=== PATIENT | male | born 1965 | race African-American/Black ===

== ENCOUNTER 2017-05-15 16:38 | Inpatient (IN) | payer OTHER ==
[~2017-05-15] VITALS: Ht 172.7 cm; Wt 78.0 kg
--- NOTE | ~2017-05-15 | CO ---
Unit #: [id number] #: [id number] Patient: GENEVA ROBLES [id number] [facility] [address] [place] [address] [id number] I MR#: [id number] NAME: GENEVA ROBLES. ROOM: P203 Age: 51 Sex: M Admission Date: 05/15/2017 : 1965 Attending Physician: Crescencio Hyde M.D. Primary Care Physician: Calli Doctor Not In System Consultation Date: 05/16/2017 CONSULTATION REPORT This is a followup to an initial consultation. HISTORY OF PRESENT ILLNESS Geneva was seen yesterday for an open wound on his right ankle. There is a concern that it was infected. He was unable to ambulate due to the pain in this ankle and also is having body aches and chills today. He was sent to the ER at [facility] where he was given Bactroban. Today, he does complain of continued pain with ambulation and is using a wheelchair. He also does have body aches and chills, however, he is currently detoxing. He has no other complaints. PHYSICAL EXAMINATION CARDIAC: Regular rate and rhythm. No murmurs, gallops, or rubs. RESPIRATORY: Clear to auscultation bilaterally. SKIN: 3 cm round open wound on the right medial malleolus with another lesion about 1.5 cm round, tenderness with palpation and mild edema. Please see photo in chart. ASSESSMENT AND PLAN Right ankle open wound. We have obtained an x-ray of the right ankle that is pending. CBC results have not been obtained. We will re-attempt to obtain these. Dictated by... Ilya Wolfe/randee TD: 05/16/2017 23:53 JOB #: [id number] CONSULTATION REPORT Page 1 of 1 X MARQUIS MARCUS APRN CONSULTATION REPORT
--- NOTE | ~2017-05-15 | HP ---
Unit #: [id number] #: [id number] Patient: GENEVA GONSALES [id number] [facility] [address] [place] [address] [id number] I MR#: [id number] NAME: GENEVA GONSALES ROOM: P208 Age: 51 Sex: M Admission Date: 05/15/2017 : 1965 Attending Physician: Crescencio Hyde M.D. Admitting Physician: Crescencio Hyde M.D. Primary Care Physician: Generic Doctor Not In System HISTORY AND PHYSICAL This is Shaye Conroy, nurse practitioner dictating an amendment to an H & P on Geneva Gonsales that was completed on 05/15/2017. His medical record [id number], his date of is [birth year]. PAST MEDICAL HISTORY Yesterday Geneva reported that he has no past medical history, today he is reporting a history of hepatitis C and hypertension. Dictated by... Ilya Wolfe TD: 05/17/2017 00:42 JOB #: [id number] HISTORY AND PHYSICAL Page 1 of 1 X SHAYE CONROY APRN X HISTORY AND PHYSICAL
--- NOTE | ~2017-05-15 | CO ---
Unit #: [id number] #: [id number] Patient: GENEVA ROBLES [id number] [facility] [address] [place] [address] [id number] I MR#: [id number] NAME: GENEVA ROBLES. ROOM: P203 Age: 51 Sex: M Admission Date: 05/15/2017 : 1965 Attending Physician: Crescencio Hyde M.D. Primary Care Physician: Calli Doctor Not In System Consultation Date: 05/16/2017 CONSULTATION REPORT ADDENDUM Records have been received from [facility] where Geneva was admitted for cellulitis and treated nonsurgically for abscess on his right ankle. He had a CT scan that was negative for osteomyelitis or any drainable abscesses. He was treated with one time dose of Dalvance and not prescribed any further medications for this reason. He was prescribed followup wound care; however, he has been noncompliant with that and he was discharged from there on 05/12/2017. Dictated by... Ilya Wolfe/randee TD: 05/16/2017 23:34 JOB #: [id number] CONSULTATION REPORT Page 1 of 1 X MARQUIS MARCUS APRN CONSULTATION REPORT
--- NOTE | ~2017-05-15 | CO ---
Unit #: [id number] #: [id number] Patient: GENEVA ROBLES [id number] [facility] [address] [place] [address] [id number] I MR#: [id number] NAME: GENEVA ROBLES. ROOM: [facility] Age: 51 Sex: M Admission Date: 05/15/2017 : 1965 Attending Physician: Crescencio Hyde M.D. CONSULTATION REPORT REVISED REPORT ORDERING PROVIDER Dr. Hyde. REASON FOR CONSULT To follow up on right ankle wound. HISTORY OF PRESENT ILLNESS The patient was seen yesterday by Shaye Conroy, nurse practitioner. He was sent to [facility] for evaluation of his right leg wound. He returned on Bactroban and Keflex. He had previous admissions to a hospital in [place] for the same, in which he was given IV antibiotics and surgical consult was done, which revealed that he did not need any type of surgical intervention. CT in [place] was negative, and x-ray that was yesterday showed no signs of osteomyelitis. Dr. Nino was consulted about the wound because it did not appear to be getting better from previous days. He recommended discontinuing the Bactroban, and continuing the Keflex for three days and starting... Dr. Johnson recommends Santyl dressing changes once daily and he will come and look at the wound on Sunday when he was rounding. EF/modl TD: 05/18/2017 09:27 JOB #: [id number] Dictated by... Giselle Escoto A.P.R.N. for Karla Johnson M.D. EF/modl TD: 05/18/2017 09:19 JOB #: [id number] Unit #: [id number] #: [id number] Patient: GENEVA ROBLES CONSULTATION REPORT Page 1 of 1 X GISELLE ESCOTO APRN CONSULTATION REPORT
--- NOTE | ~2017-05-15 | CR21 ---
[facility] A Service of [facility] RADIOLOGY TEXT RESULTS PATIENT: GENEVA ROBLES LOCATION: P2S : 63 UNIT #: [id number] AGE: [address]: Crescencio Hyde MD SEX: M ORDER DR: [id number] [facility] [address] [facility]. [place], [place] [address] [id number] I MR#: [id number] Acc #: [id number] NAME: GENEVA ROBLES : 1965 SEX: M STUDY DATE/TIME: 05/16/2017 17:37 UNIT: [facility] ROOM: [place] STUDY DESCRIPTION: CR Ankle Min 3 Views Rt Attending Physician: Crescencio Hyde M.D. Ordering Physician: Crescencio Hyde M.D. MEDICAL IMAGING REPORT This report is preliminary unless electronic signature is present EXAM Right ankle HISTORY Ulcer on medial ankle. Patient is a poor historian and has no idea how long it has been there. Patient is unable to bear weight on right ankle. Open wound. Patient has been shooting up heroin and is suicidal. TECHNIQUE Three views of the right ankle are reviewed. FINDINGS There is soft tissue swelling medially with area of defect, which would be consistent with the wound described in the history. There is no associated radiopaque foreign body. There is no plain film radiographic evidence for osteomyelitis. There is no acute fracture or dislocation. IMPRESSION 1. Findings are consistent with soft tissue ulcer medially, overlying the medial malleolus. There is no foreign body appreciated on x-ray and there is no evidence for osteomyelitis on plain film. Please correlate for clinical evidence of cellulitis. Dictated by... Mickie Carlton M.D. THIS IS AN ELECTRONICALLY VERIFIED REPORT Mickie Carlton M.D. at 05/17/2017 10:45 AM SAC/pcl TD: 05/16/2017 21:57 [facility] A Service [facility] RADIOLOGY TEXT RESULTS PATIENT: GENEVA ROBLES LOCATION: P2S : [birth year] UNIT #: [id number] AGE: [address]: Crescencio Hyde MD SEX: M ORDER DR: JOB #: [id number] MEDICAL IMAGING REPORT Page 1 of 1 COPY
--- NOTE | ~2017-05-15 | HP ---
Unit #: [id number] #: [id number] Patient: GENEVA ROBLES [id number] [facility] [address] [place] [address] [id number] I MR#: [id number] NAME: GENEVA ROBLES. ROOM: P208 Age: 51 Sex: M Admission Date: 05/15/2017 : 1965 Attending Physician: Crescencio Hyde M.D. Admitting Physician: Crescencio Hyde M.D. Primary Care Physician: Generic Doctor Not In System HISTORY AND PHYSICAL HISTORY OF PRESENT ILLNESS Geneva is a 51-year-old male admitted on 05/15/2017 to [facility] for detox from heroin. PAST MEDICAL HISTORY None. PAST SURGICAL HISTORY None. ALLERGIES None. SOCIAL HISTORY Smokes 1/2 pack of cigarettes daily. Denies alcohol use. Does report daily use of heroin. He is currently single and living at [facility]. FAMILY HISTORY Noncontributory. REVIEW OF SYSTEMS CONSTITUTIONAL: No fever or chills. HEENT: Denies any sore throat, ear pain or runny nose. CARDIOVASCULAR: Denies chest pain, irregular heart rhythm or palpitations. CHEST: Denies shortness of breath or cough. No hemoptysis. GASTROINTESTINAL: Denies nausea, vomiting, diarrhea or chronic constipation. ENDOCRINE: Denies history of increased thirst or urination. No recent significant weight loss or gain. GENITOURINARY: Denies dysuria, frequency, or hematuria. SKIN: Wound on right ankle. HEMATOLOGIC: Denies history of increased bleeding or bruising. MUSCULOSKELETAL: Patient reports severe pain in his right ankle and he is unable to ambulate. NEUROLOGIC: Denies problems with vision or speech. No frequent, severe headaches. No numbness, tingling or weakness in any extremities. Denies loss of bladder or bowel control. CURRENT MEDICATIONS None. PHYSICAL EXAMINATION Unit #: [id number] #: [id number] Patient: GENEVA ROBLES GENERAL: Alert, oriented, in no acute distress. VITAL SIGNS: Blood pressure 150/93, heart rate 92, respirations 20, temperature 97.9. HEIGHT: 5 feet 8. WEIGHT: 172 pounds. SKIN: Open wound to right ankle. Please see medical consult. HEENT: Normocephalic. TMs not viewed. Oral and nasal passages clear. Conjunctivae clear. PERRLA. EOMs intact. NECK: Supple without lymphadenopathy or thyromegaly. HEART: Regular rate and rhythm without murmur. LUNGS: Clear. ABDOMEN: Soft, nontender, without masses or hepatosplenomegaly. : Not done. EXTREMITIES: No evidence of cyanosis, clubbing or edema. Moves all without focal deficit. NEUROLOGICAL: Grossly within normal limits. Cranial Nerves: II: Visual medina are intact. III, IV AND : Extraocular movements are intact. Pupils are equal, round and reactive to light. V: Facial sensation is grossly normal. VII: Facial movements and expression are normal. VIII: Auditory acuity grossly intact. IX, X: Uvula is midline. Phonation is normal. XI: Patient shrugs shoulders and turns head normally. XII: Tongue protrudes in the midline. Sensory and Motor Function: Sensory and motor sensation is grossly normal. Motor: moves all extremities well. Coordination: Gait is normal. Deep Tendon Reflexes: Intact. IMPRESSION Psychiatric admission. RECOMMENDATIONS PSYCHIATRIC: Per psychiatrist. MEDICAL: No contraindication to participate in facility's activities. MEDICAL PROGNOSIS Good. MEDICAL CONDITION Stable. Dictated by... Ilya Wolfe/[place] TD: 05/15/2017 21:25 JOB #: [id number] Unit #: [id number] #: [id number] Patient: GENEVA ROBLES HISTORY AND PHYSICAL Page 1 of 1 X MARQUIS MARCUS APRN X HISTORY AND PHYSICAL
--- NOTE | ~2017-05-15 | PN ---
Unit #: [id number] #: [id number] Patient: GENEVA ROBLES [id number] [facility] [address] [place] [address] [id number] I MR#: [id number] NAME: GENEVA ROBLES. ROOM: P203 Age: 51 Sex: M Admission Date: 05/15/2017 : 1965 Attending Physician: Crescencio Hyde M.D. Admitting Physician: Crescencio Hyde M.D. Primary Care Physician: Generic Doctor Not In System [facility] PROGRESS NOTES DATE 05/17/2017 DISCUSSION The patient is abed today continuing to complain of frequent physical discomfort related to opioid withdrawal. He states that he plans to return to the [facility] upon completion of detox. Dictated by... Crescencio Hyde M.D. CB/bzg TD: 05/17/2017 14:30 JOB #: [id number] [facility] PROGRESS NOTES Page 1 of 1 X Crescencio Hyde MD X PROGRESS NOTE
--- NOTE | ~2017-05-15 | PA ---
Unit #: [id number] #: [id number] Patient: GENEVA ROBLES [id number] [facility] [address] [place] [address] [id number] I MR#: [id number] NAME: GENEVA ROBLES. ROOM: P208 Age: 51 Sex: M Admission Date: 05/15/2017 : 1965 Date of Assessment: 05/16/2017 Attending Physician: Crescencio Hyde M.D. Admitting Physician: Crescencio Hyde M.D. Primary Care Physician: Generic Doctor Not In System PSYCHIATRIC ASSESSMENT IDENTIFYING INFORMATION The patient is a 51-year-old male admitted to the [address] [place] [address] Unit with recurrent abuse of heroin. CHIEF COMPLAINT None given. INFORMANT Patient and chart, reliability good. HISTORY OF PRESENT ILLNESS The patient is a 51-year-old male admitted with recurrence abuse of heroin. The patient abused on the morning of admission. He was reporting positive suicidal ideation at the time of admission and was brought to this facility from the [facility] "to detox." The patient has had come here approximately 1 year ago from [place], [place], to seek treatment for his opioid dependence and was admitted under similar circumstances at that time. When seen today, the patient is abed, resting comfortably. He cannot be aroused for interview. For more complete history of present illness, please refer to previously dictated notes. PAST PSYCHIATRIC HISTORY Reviewed, no changes. PAST MEDICAL HISTORY Reviewed, no changes. MEDICATIONS At the time of admission, the patient is on no prescribed medications. ALLERGIES None. FAMILY HISTORY Noncontributory. SOCIAL HISTORY Reviewed, no changes. MENTAL STATUS EXAM Examination at this time reveals the patient to be a soundly sleeping male. He is abed in no apparent physical distress. Unit #: [id number] #: [id number] Patient: GENEVA ROBLES ASSETS AND LIABILITIES The patient's assets are to be assessed. Liabilities: Lack of resources. Ongoing substance use. DIAGNOSTIC IMPRESSION 1. Opioid use disorder. 2. Mood disorder. 3. Dysthymic disorder. 4. Hepatitis C. 5. Hypertension. TREATMENT PLAN The patient remains hospitalized for safety and stabilization. We will seek a med consult related to some areas of excoriation on the patient's right leg and for his blood pressure. ESTIMATED LENGTH OF STAY 5 to 7 days. The followup will take place through the auspices of community mental health resources. Dictated by... Stephen Jolley TD: 05/16/2017 14:01 JOB #: [id number] PSYCHIATRIC ASSESSMENT Page 1 of 1 X Crescencio Hyde MD X PSYCHIATRIC ASSESSMENT
--- NOTE | ~2017-05-15 | DS ---
Unit #: [id number] #: [id number] Patient: GENEVA ROBLES [id number] [facility] [address] [place] [address] [id number] I MR#: [id number] NAME: GENEVA ROBLES. ROOM: P203 Age: 51 Sex: M Admission Date: 05/15/2017 : 1965 Discharge Date: 05/18/2017 Attending Physician: Crescencio Hyde M.D. Primary Care Physician: Generic Doctor Not In System DISCHARGE SUMMARY REASON FOR ADMISSION The patient is a 51-year-old, -[place] male admitted to the [address] [place] [address] for opioid detox. HOSPITAL COURSE Patient was admitted to the [address] [place] [address] and placed on routine detoxification protocol for opioids. He was seen related to an ankle ulcer and begun on Keflex and collagenase cream. The patient's stay in the hospital was otherwise uneventful. By 05/18, he exhibited no signs or symptoms of withdrawal and requested discharge. He stated that he was planning to return to the [facility]. Discharge was ordered. FINAL DIAGNOSES 1. Opioid used disorder. 2. Ankle ulcer. DISPOSITION (1) . DISCHARGE MEDICATIONS On discharge, patient is discharged on the following medications: 1. Santyl apply once daily to affected area. 2. Keflex 500 mg every 8 hours for wound infection. DIET AND ACTIVITY No dietary or physical restrictions were placed on the patient at the time of discharge. FOLLOWUP Will take place through the auspices of community mental health resources in the [facility]. PROGNOSIS The patient's prognosis is considered fair. Dictated by... Crescencio Hyde M.D. CB/kevin Unit #: [id number] #: [id number] Patient: GENEVA ROBLES TD: 05/19/2017 12:28 JOB #: [id number] DISCHARGE SUMMARY Page 1 of 1 X Crescencio Hyde MD X DISCHARGE SUMMARY
--- NOTE | ~2017-05-15 | CO ---
Unit #: [id number] #: [id number] Patient: GENEVA ROBLES [id number] [place] [address] [id number] MR#: [id number] NAME: GENEVA ROBLES. ROOM: P208 Age: 51 Sex: M Admission Date: 05/15/2017 : 1965 Attending Physician: Crescencio Hyde M.D. Primary Care Physician: Generic Doctor Not In System Consultation Date: 05/15/2017 CONSULTATION REPORT HISTORY OF PRESENT ILLNESS Geneva reports right ankle wound that he first noticed 2 days ago. However, he is a very poor historian and is not really answering questions appropriately. Staff reports that they noticed on admission, he was unable to ambulate due to pain in his right ankle. He also has had severe body chills and aches, but has not had any fevers. He reports severe pain with any kind of movement of his right ankle and has no other complaints. PHYSICAL EXAMINATION CARDIAC: Regular rate and rhythm. No murmurs, gallops, or rubs. RESPIRATORY: Clear to auscultation bilaterally. SKIN: 2 cm, round, open wound on right medial malleolus with adjacent 1.5 cm closed wound, extremely tender to touch. MUSCULOSKELETAL: Very limited range of motion in right ankle due to pain, heat and swelling. ASSESSMENT AND PLAN Open wound, right medial malleolus. We will send to ER for evaluation to rule out osteomyelitis. Dictated by... Ilya Wolfe/randee TD: 05/16/2017 03:04 JOB #: [id number] CONSULTATION REPORT Page 1 of 1 X MARQUIS MARCUS APRN X CONSULTATION REPORT
[2017-05-16 12:39] LABS: URINE APPEARANCE CLEAR; URINE BILIRUBIN NEG (NEG); URINE BLOOD NEG (NEG); URINE COLOR YELLOW; URINE GLUCOSE NEG (NEG); URINE KETONE NEG (NEG); URINE LEUKOCYTE ESTERASE NEG (NEG); URINE NITRATE NEG (NEG); URINE PROTEIN NEG (NEG); URINE SPECIFIC GRAVITY 1.015 (1.003-1.035)
[2017-05-16 13:03] LABS: AMPHETAMINE NEG (NEG); BARBITURATES NEG (NEG); BENZODIAZEPINES NEG (NEG); COCAINE POS (NEG); MARIJUANA NEG (NEG); OPIATES POS (NEG); TRICYCLIC ANTIDEPRESSANTS NEG (NEG); U METHADONE NEG (NEG)
[2017-05-18 10:17] LABS: BASOPHIL# 0.1 X10e3 (0-0.3); BASOPHIL% 0.6 % (0-2.5); DIFF IND NO; EOSINOPHIL# 0.2 X10e3 (0-0.7); EOSINOPHIL% 2.3 % (0.0-7.0); HEMOGLOBIN 15.3 gm/dL (13.0-16.0); LYMPHOCYTE# 2.4 X10e3 (1.0-3.5); LYMPHOCYTE% 29.3 % (17.0-45.0); MEAN CELL VOLUME 90.3 FL (83-96); MEAN CORPUSCULAR HEMOGLOBIN 29.4 PG (28-34); MEAN CORPUSCULAR HGB CONC 32.6 g/dL (30-36); MEAN PLATELET VOLUME 9.5 FL (6.5-11.5); MONOCYTE# 0.7 X10e3 (0-1.0); NEUTROPHIL# 4.9 X10e3 (1.5-7.1); NEUTROPHIL% 58.8 % (40-75); PLATELET COUNT 317 X10e3 (140-420); RED BLOOD COUNT 5.21 X10e (3.90-5.60); RED CELL DISTRIBUTION WIDTH 13.8 % (11.0-15.5); WHITE BLOOD COUNT 8.3 X10e3 (4.0-10.5)
== END 2017-05-18 15:05 | disposition home or self-care (01) | DRG 897 ==
LOC: P2S 19:19
PROVIDERS: Specialist
PROC: HZ2ZZZZ Detoxification Services for Substance Abuse Treatment (ICD-10-PCS; principal; 2017-05-16)
DX: F11.10 Opioid abuse, uncomplicated (principal); F39 Unspecified mood [affective] disorder; I10 Essential (primary) hypertension; F34.1 Dysthymic disorder; B19.20 Unspecified viral hepatitis C without hepatic coma; F17.210 Nicotine dependence, cigarettes, uncomplicated; S91.001A Unspecified open wound, right ankle, initial encounter
CPT/HCPCS: 73610; 80307; 81003; 85025